=== PATIENT | male | born 1995 | race Caucasian/White ===

== ENCOUNTER 2018-10-11 04:09 | Emergency (ER) | payer OTHER ==
--- NOTE | 2018-10-11 04:15 | EDPHY ---
H & P Time Seen by Provider: 10/11/18 04:15 HPI/ROS: HPI CHIEF COMPLAINT: Blood in urine after intercourse. HISTORY OF PRESENT ILLNESS: 23-year-old male, otherwise healthy no significant medical history presents emergency room stating that after he had intercourse from 1:00 a.m. To 3:30 a.m. This evening he urinated and saw blood in his urine. This concerned him so he decided come the emergency room. He denies any penile pain, denies penile trauma, denies back pain or abdominal pain, denies flank pain. No nausea vomiting or fever. Patient does report that the intercourse was rather vigorous. But no penile or significant trauma. Past Medical History: Denies significant medical history Past Surgical History: Right hand surgery. Social History: Patient did have alcohol this evening. Denies illicit drugs or tobacco. Family History: Noncontributory ROS REVIEW OF SYSTEMS: 10 Systems were reviewed and negative with the exception of the elements mentioned in the history of present illness. Exam Constitutional appears well triage nursing summary reviewed, vital signs reviewed, awake/alert. Eyes normal conjunctivae and sclera, EOMI, PERRLA. HENT normal inspection, atraumatic, moist mucus membranes, no epistaxis, neck supple/ no meningismus, no raccoon eyes. Respiratory clear to auscultation bilaterally, normal breath sounds, no respiratory distress, no wheezing. Cardiovascular rate normal, regular rhythm, no murmur, no edema, distal pulses normal. Gastrointestinal soft, non-tender, no rebound, no guarding, normal bowel sounds, no distension, no pulsatile mass. Genitourinary no CVA tenderness. Musculoskeletal no midline vertebral tenderness, full range of motion, no calf swelling, no tenderness of extremities, no meningismus, good pulses, neurovascularly intact. Skin pink, warm, & dry, no rash, skin atraumatic. Neurologic awake, alert and oriented x 3, AAOx3, moves all 4 extremities equally, motor intact, sensory intact, CN II-XII intact, normal cerebellar, normal vision, normal speech. Psychiatric normal mood/affect. Heme/Lymph/Immune no lymphadenopathy. Differential Diagnosis: Includes but is not limited to in a particular order urinary tract infection, cystitis, penile bleeding after intercourse. Medical Decision Making: Plan for this patient check UA. Re-evaluation: 0620AM: Patient re-evaluated this time resting comfortably. No abdominal pain no flank pain, no dysuria. Patient has blood in his urine after intercourse. Recommend he follows up with Urology. No evidence of infection here. Recommend he return emergency room if he has worsening bleeding. Follow up with Urology Refrain from intercourse for 1 week. I believe the blood in his urine is probably from vigorous intercourse as he states he had vigorous intercourse for 3 hr tonight. Patient has no flank pain or abdominal pain. Denies any pain to his testicles are urinating. Return precautions discussed. Source: Patient - Medical/Surgical History Hx Asthma: No Hx Chronic Respiratory Disease: No Hx Diabetes: No Hx Cardiac Disease: No Hx Renal Disease: No Hx Cirrhosis: No Hx Alcoholism: No Hx HIV/AIDS: No Hx Splenectomy or Spleen Trauma: No Other PMH: DENIES - Social History Smoking Status: Never smoked Constitutional: Initial Vital Signs Temperature (C) 36.5 C 10/11/18 04:14 Heart Rate 94 10/11/18 04:14 Respiratory Rate 16 10/11/18 04:14 Blood Pressure 128/70 H 10/11/18 04:14 O2 Sat (%) 95 10/11/18 04:14 O2 Delivery Mode Room Air Allergies/Adverse Reactions: No Known Allergies Allergy (Unverified 08/24/18 01:31) Home Medications: Medication Instructions Recorded Cephalexin [Keflex] 500 mg PO Q6H #28 cap 08/24/18 Hydrocodone/APAP 5/325 [Kiln 1 - 2 tab PO Q4H PRN #10 tab 08/24/18 5/325] Ibuprofen [Motrin (*)] 800 mg PO Q6-8PRN #14 tab 08/24/18 Medical Decision Making - Data Points Laboratory Results: Laboratory Results 10/11/18 05:12 10/11/18 05:12 10/11/18 10/11/18 10/11/18 05:12 05:12 04:15 WBC 10.16 10^3/uL H 10^3/uL (3.80-9.50) RBC 5.12 10^6/uL 10^6/uL (4.40-6.38) Hgb 15.0 g/dL g/dL (13.7-17.5) Hct 42.0 % % (40.0-51.0) MCV 82.0 fL fL (81.5-99.8) MCH 29.3 pg pg (27.9-34.1) MCHC 35.7 g/dL g/dL (32.4-36.7) RDW 12.2 % % (11.5-15.2) Plt Count 257 10^3/uL 10^3/uL (150-400) MPV 9.3 fL fL (8.7-11.7) Neut % (Auto) 69.9 % % (39.3-74.2) Lymph % (Auto) 21.9 % % (15.0-45.0) [place] % (Auto) 5.6 % % (4.5-13.0) Eos % (Auto) 1.9 % % (0.6-7.6) Baso % (Auto) 0.4 % % (0.3-1.7) Nucleat RBC Rel Count 0.0 % % (0.0-0.2) Absolute Neuts (auto) 7.10 10^3/uL H 10^3/uL (1.70-6.50) Absolute Lymphs (auto) 2.23 10^3/uL 10^3/uL (1.00-3.00) Absolute Monos (auto) 0.57 10^3/uL 10^3/uL (0.30-0.80) Absolute Eos (auto) 0.19 10^3/uL 10^3/uL (0.03-0.40) Absolute Basos (auto) 0.04 10^3/uL 10^3/uL (0.02-0.10) Absolute Nucleated RBC 0.00 10^3/uL 10^3/uL (0-0.01) Immature Gran % 0.3 % % (0.0-1.1) Immature Gran # 0.03 10^3/uL 10^3/uL (0.00-0.10) Sodium 140 mEq/L mEq/L (135-145) Potassium 4.0 mEq/L mEq/L (3.3-5.0) Chloride 105 mEq/L mEq/L (97-110) Carbon Dioxide 22 mEq/l mEq/l (22-31) Anion Gap 13 mEq/L mEq/L (6-14) BUN 15 mg/dL mg/dL (7-23) Creatinine 0.9 mg/dL mg/dL (0.7-1.3) Estimated GFR > 60 Glucose 85 mg/dL mg/dL (70-100) Calcium 9.6 mg/dL mg/dL (8.5-10.4) Urine Color RED Urine Appearance MODERATELY TURBID Urine pH 5.0 (5.0-7.5) Ur Specific [place] 1.020 (1.002-1.030) Urine Protein 2+ H (NEGATIVE) Urine Ketones NEGATIVE (NEGATIVE) Urine Blood 3+ H (NEGATIVE) Urine Nitrate NEGATIVE (NEGATIVE) Urine Bilirubin NEGATIVE (NEGATIVE) Urine Urobilinogen NEGATIVE EU EU (0.2-1.0) Ur Leukocyte Esterase NEGATIVE (NEGATIVE) Urine RBC 50-182 /hpf H /hpf (0-3) Urine WBC 5-10 /hpf H /hpf (0-3) Ur Epithelial Cells NONE SEEN /lpf /lpf (NONE-1+) Amorphous Sediment PRESENT /hpf /hpf (NONE-1+) Urine Mucus 3+ /lpf H /lpf (NONE-1+) Urine Glucose NEGATIVE (NEGATIVE) Medications Given: Discontinued Medications Sodium Chloride (Ns) 1,000 mls @ 0 mls/hr IV ONCE ONE PRN Reason: Wide Open Stop: 10/11/18 04:51 Last Admin: 10/11/18 05:10 Dose: 1,000 mls Departure - Departure Disposition: Home, Routine, Self-Care Condition: Good Instructions: Hematuria (ED) Additional Instructions: 1. Drink lots of fluids stay well-hydrated 2. Return to the emergency room if worsening bleeding 3. Follow up with Urology. Referrals: NONE *PRIMARY CARE P,. [Primary Care Provider] - As per Instructions Faustino Esqueda MD [Medical Doctor] - As per Instructions
[2018-10-11] MEDS ORDERED: NS 1,000 ML IV ONE (04:50)
[2018-10-11 06:04] LABS: PLATELET COUNT 257 10^3/uL (150-400)
[2018-10-11 06:31] VITALS: BP 102/71
== END 2018-10-11 06:30 | disposition home or self-care (01) ==
DX: R31.9 Hematuria, unspecified (principal)